=== PATIENT | male | born 1960 | race Caucasian/White ===

== ENCOUNTER → 2017-08-28 | Outpatient (CLI) | payer OTHER | END | disposition home or self-care (01) | LOC: RAD 10:49 | DX: J43.9 Emphysema, unspecified (principal); Z87.891 Personal history of nicotine dependence ==

== ENCOUNTER → 2021-02-17 | Outpatient (CLI) | payer OTHER | END | disposition home or self-care (01) | LOC: COVID19 16:01 | PROVIDERS: ATTEND Internal Medicine | DX: U07.1 COVID-19 (principal) ==